=== PATIENT | female | born 1975 | race Caucasian/White ===

== ENCOUNTER 2017-12-18 02:16 | Outpatient (RCR) | payer MEDICAID, SELFPAY | END 2017-12-26 02:16 | LOC: INF 02:16 | PROVIDERS: PCP Physician Assistant; Visit Provider Internal Medicine Medical Oncology | DX: R69 Illness, unspecified (principal) ==

== ENCOUNTER 2017-12-18 12:06 | Outpatient (CLI) | payer MEDICAID, SELFPAY ==
[2017-12-18 12:34] LABS: Abs Immature Grans 0.01 k/cumm (0.0-0.09); Absolute Basophil Count 0.01 k/cumm (0.0-0.2); Absolute Eosinophil Count 0.12 k/cumm (0.0-0.7); Absolute Lymphocyte Count 0.94 k/cumm (1.2-3.4); Absolute Monocyte Count 0.27 k/cumm (0.11-0.7); Absolute Neutrophil Count 4.31 k/cumm (1.2-6.7); Basophils % 0.2; Eosinophils % 2.1; HCT 42.5 % (36.0-46.0); Immature Grans % 0.2; Lymphocytes % 16.6; Mean Corp. HGB Concentration 32.9 g/dL (32.0-36.0); Mean Corpuscular Hemoglobin 29.6 pg (27.0-33.0); Mean Corpuscular Volume 89.9 fL (80-95); Mean Platelet Volume 8.5 fL (8.0-11.0); Monocytes % 4.8; Neutrophils % 76.1; Platelet Count 328 x1000/uL (130-400); RBC 4.73 m/cumm (4.00-5.20); White Blood Cell Count 5.66 k/cumm (4.4-10.8)
[2017-12-18 12:43] LABS: ALT 32 U/L (12-78); AST 15 U/L (15-37); Albumin 3.6 g/dL (3.4-5.0); Alkaline Phosphatase 117 U/L (46-116); Anion Gap 10.2 mmol/L (3-11); BUN 13 mg/dL (7-18); Bilirubin, Total 0.3 mg/dL (0.2-1.0); CO2 25.8 mmol/L (21.0-32.0); CREATININE 0.59 mg/dL (0.55-1.02); Calcium 9.6 mg/dL (8.5-10.1); Chloride 101 mmol/L (98-107); Glucose 215 mg/dL (70-100); Potassium 4.1 mmol/L (3.5-5.1); Sodium 137 mmol/L (136-145); Total Protein 7.6 g/dL (6.4-8.2)
[2017-12-18 12:44] LABS: Cholesterol 147 mg/dL (50-200); HDL Cholesterol 55 mg/dL (40-60); LDL CHOLESTEROL 80 mg/dL (<100); Triglyceride 104 mg/dL (30-150)
[2017-12-18 12:57] LABS: COMMENT (LAB VIEW ONLY) 36.49 mg/dL; Microalb ug/mg Crea 13.4 ug/mg Cr
[2017-12-19 07:50] LABS: Hemoglobin A1C 8.5 % (4.5-6.2)
== END 2017-12-18 12:07 ==
PROVIDERS: PCP Physician Assistant; Visit Provider Internal Medicine Medical Oncology
DX: C50.411 Malignant neoplasm of upper-outer quadrant of right female breast (principal); Z17.1 Estrogen receptor negative status [ER-]; E11.9 Type 2 diabetes mellitus without complications; I10 Essential (primary) hypertension; E78.4 Other hyperlipidemia
CPT/HCPCS: 36415; 80053; 80061; 83721; 82043; 82570; 83036; 85025

== ENCOUNTER 2018-02-11 09:58 | Outpatient (CLI) | payer MEDICAID, SELFPAY ==
[2018-02-11 10:35] LABS: Abs Immature Grans 0.02 k/cumm (0.0-0.09); Absolute Basophil Count 0.02 k/cumm (0.0-0.2); Absolute Eosinophil Count 0.09 k/cumm (0.0-0.7); Absolute Lymphocyte Count 0.46 k/cumm (1.2-3.4); Basophils % 0.4; Eosinophils % 1.6; HCT 44.2 % (36.0-46.0); HGB 15.1 g/dL (12.0-15.5); Immature Grans % 0.4; Lymphocytes % 8.2; Mean Corp. HGB Concentration 34.2 g/dL (32.0-36.0); Mean Corpuscular Hemoglobin 29.3 pg (27.0-33.0); Mean Corpuscular Volume 85.7 fL (80-95); Mean Platelet Volume 8.6 fL (8.0-11.0); Monocytes % 7.2; Neutrophils % 82.2; Platelet Count 224 x1000/uL (130-400); RBC 5.16 m/cumm (4.00-5.20); RBC Distribution Width 13.2 % (11.7-14.6); White Blood Cell Count 5.59 k/cumm (4.4-10.8)
[2018-02-11 10:51] LABS: ALT 43 U/L (12-78); AST 24 U/L (15-37); Alkaline Phosphatase 110 U/L (46-116); Anion Gap 9.6 mmol/L (3-11); BUN 9 mg/dL (7-18); Bilirubin, Total 0.4 mg/dL (0.2-1.0); CO2 29.4 mmol/L (21.0-32.0); CREATININE 0.67 mg/dL (0.55-1.02); Calcium 9.7 mg/dL (8.5-10.1); Chloride 102 mmol/L (98-107); Glucose 196 mg/dL (70-100); Potassium 4.1 mmol/L (3.5-5.1); Sodium 141 mmol/L (136-145); Total Protein 7.7 g/dL (6.4-8.2)
== END 2018-02-11 10:18 ==
PROVIDERS: PCP Physician Assistant; Visit Provider Internal Medicine Medical Oncology
DX: C50.411 Malignant neoplasm of upper-outer quadrant of right female breast (principal); Z17.1 Estrogen receptor negative status [ER-]
CPT/HCPCS: 36415; 80053; 85025